=== PATIENT | male | born 1945 | race African-American/Black ===

== ENCOUNTER 2020-12-18 03:45 | Emergency (ER) | payer MEDICARE, OTHER ==
[~2020-12-18] VITALS: Ht 182.9 cm; Wt 77.3 kg
[~2020-12-18 03:45] MED LIST: AMLO-258 PO; ASPI-1450 PO; CARV12 PO; LOSA25TA21 PO; SIMV-260 PO
[2020-12-18 04:12] LABS: GLUCOMETER DEV NAME(LOC) ERT.5; GLUCOSE,POINT OF CARE 77 MG/DL (70-110)
[2020-12-18 04:55] VITALS: BP 122/74
== END 2020-12-18 04:58 | disposition home or self-care (01) ==
LOC: EMS 03:48
DX: I77.0 Arteriovenous fistula, acquired (principal); E11.22 Type 2 diabetes mellitus with diabetic chronic kidney disease; Z79.899 Other long term (current) drug therapy
CPT/HCPCS: 82962; 99283